=== PATIENT | female | born 1950 | race Caucasian/White ===

== ENCOUNTER → 2018-10-11 | Outpatient (CLI) | payer MEDICARE ==
[~2018-10-11] MED LIST: /CIPR75TA PO; /LANS30GR OR; /ZOLP6ER; /ZOLP6ER OR; ALBU83IN; ALBU83IN IN; AMIT50TA2; AMIT50TA2 OR; ASPI81TA45; ATIV0.5T; ATIV0.5T OR; DETR4CAP; DETR4CAP OR; DILT240C3; DILT240C3 OR; DURAGESIC PATCH; FENT100D25 TD; FLEXERIL; FLEXERIL OR; FOLI1TAB; FOLI1TAB OR; K-TA10TA; LEVO25TA2 OR; LEVO88TA4; LISI10TA4 PO; METH2.5T; METH2.5T OR; PLAV75TA2; PLAV75TA2 OR; POTA10CA2; POTA10CA2 OR; PREV30TA; VENL75TA2; VENL75TA2 OR; VENTAER IN; VICO5TAB; VICO5TAB OR; VIT D 2000 OR; VITAMIN D50000 UNT; ZOCO80TA; ZOCO80TA OR
[2018-10-11 12:51] LABS: BASO # 0.1 10^3/uL (0.0-0.2); BASO % 0.7 % (0.0-1.0); EOS # 0.2 10^3/uL (0.0-0.50); HEMATOCRIT 42.4 % (36.0-47.0); HEMOGLOBIN 13.6 g/dl (12.0-15.5); LYMPH # 2.3 10^3/uL (1.5-4.5); MEAN CORPUSCULAR HEMOGLOBIN 32.9 pg (27.0-33.0); MEAN CORPUSCULAR HGB CONC 32.1 g/dl (32.0-36.5); MEAN CORPUSCULAR VOLUME 102.4 fl (80.0-96.0); MONO # 0.7 10^3/uL (0.0-0.8); MONO % 8.5 % (0.0-5.0); NEUTROPHILS # 4.8 10^3/uL (1.8-7.7); NEUTROPHILS % 59.6 % (36.0-66.0); PLATELET COUNT, AUTOMATED 297 10^3/uL (150-450); RED BLOOD COUNT 4.14 10^6/uL (4.00-5.40); WHITE BLOOD COUNT 8.1 10^3/uL (4.0-10.0)
[2018-10-11 13:07] LABS: ALBUMIN 3.7 GM/DL (3.2-5.2); ALT/SGPT 27 U/L (12-78); BILIRUBIN,TOTAL 0.5 MG/DL (0.2-1.0); BLOOD UREA NITROGEN 16 MG/DL (7-18); CALCIUM LEVEL 9.2 MG/DL (8.8-10.2); CARBON DIOXIDE LEVEL 30 MEQ/L (21-32); CHLORIDE LEVEL 106 MEQ/L (98-107); CREATININE FOR GFR 0.79 MG/DL (0.55-1.30); GLOMERULAR FILTRATION RATE > 60.0 (>39); GLUCOSE, FASTING 100 MG/DL (70-100); SODIUM LEVEL 144 MEQ/L (136-145); TOTAL PROTEIN 6.7 GM/DL (6.4-8.2)
[2018-10-11 13:15] LABS: ERYTHROCYTE SEDIMENTATION RATE 13 mm/hr (0-30)
--- NOTE | 2018-10-11 14:32 | REP ---
REASON: Arthritis. Standing bilateral AP view of the knees shows minimal left knee medial compartmental marginal osteophytosis. The compartments are symmetric and relatively well maintained with the exception of mild medial compartmental narrowing of the left knee. There is no acute fracture, dislocation, or subluxation. IMPRESSION: Left knee chronic changes, as described above. Electronically Signed by Modesto Garcia DO 10/11/2018 04:44 P
--- NOTE | 2018-10-11 14:34 | REP ---
REASON FOR EXAM: Arthritis. COMPARISON EXAM: None. There is rather symmetric-appearing mild to moderate intradigital joint space narrowing, particularly affecting the DIP joints but without periarticular osteopenia, marginal erosions, marginal osteophyte formation, fracture, dislocation, or subluxation. The bones are demineralized. IMPRESSION: Mild chronic changes as described above. Electronically Signed by Modesto Garcia DO 10/11/2018 04:44 P
== END ==
LOC: M LAB 11:47
PROVIDERS: ATTEND Internal Medicine Rheumatology
DX: M17.12 Unilateral primary osteoarthritis, left knee (principal)

== ENCOUNTER → 2019-10-22 | Outpatient (REF) | payer MEDICARE ==
[~2019-10-22] MED LIST changes: +ATIV1TAB10 PO; +CYAN100049 PO; +CYCL-707 PO; +D 10TAB2 PO; +DILT12SRCA PO; +FLON1SPR NARES; +FURO20TA2 PO; +HYDR-3713 PO; +KLOR10TA76 PO; +LEVO50TA5 PO; +LOSA50TA88 PO; +MECL-86 PO; +MONT10TA10 PO; +OMEP-218 PO; +PLAV1TAB2 PO; +QC A10TA PO; +SIMV20TA22 PO; +VENL-37 PO; +XALA0.007 OP
== END ==
LOC: M LAB REF 17:48
PROVIDERS: ATTEND Dermatology
DX: B07.9 Viral wart, unspecified (principal)

== ENCOUNTER → 2019-11-03 | Outpatient (CLI) | payer MEDICARE ==
[2019-11-03 18:15] LABS: BASO # 0.1 10^3/uL (0.0-0.2); BASO % 0.4 % (0.0-1.0); EOS # 0.3 10^3/uL (0.0-0.5); EOS % 2.2 % (0.0-3.0); HEMATOCRIT 42.3 % (36.0-47.0); HEMOGLOBIN 13.3 g/dl (12.0-15.5); LYMPH % 26.6 % (24.0-44.0); MEAN CORPUSCULAR HEMOGLOBIN 33.2 pg (27.0-33.0); MEAN CORPUSCULAR HGB CONC 31.4 g/dl (32.0-36.5); MEAN CORPUSCULAR VOLUME 105.5 fl (80.0-96.0); MONO # 0.8 10^3/uL (0.0-0.8); MONO % 7.1 % (0.0-5.0); NEUTROPHILS # 7.1 10^3/uL (1.5-8.5); NEUTROPHILS % 63.2 % (36.0-66.0); PLATELET COUNT, AUTOMATED 349 10^3/uL (150-450); RED BLOOD COUNT 4.01 10^6/uL (4.00-5.40); WHITE BLOOD COUNT 11.2 10^3/uL (4.0-10.0)
[2019-11-03 18:42] LABS: ALBUMIN 3.7 GM/DL (3.2-5.2); ALT/SGPT 40 U/L (12-78); BILIRUBIN,TOTAL 0.5 MG/DL (0.2-1.0); BLOOD UREA NITROGEN 20 MG/DL (7-18); C REACTIVE PROTEIN QUANTITATIV 1.13 MG/DL (0.00-0.30); CALCIUM LEVEL 8.9 MG/DL (8.8-10.2); CARBON DIOXIDE LEVEL 30 MEQ/L (21-32); CHLORIDE LEVEL 103 MEQ/L (98-107); CREATININE FOR GFR 0.95 MG/DL (0.55-1.30); FERRITIN 70 NG/ML (8-252); GLOMERULAR FILTRATION RATE > 60.0 (>39); GLUCOSE, FASTING 71 MG/DL (70-100); IRON (FE) 109 UG/DL (50-170); PERCENT SATURATION 32.8 % (13.2-45.0); POTASSIUM SERUM 3.8 MEQ/L (3.5-5.1); SODIUM LEVEL 140 MEQ/L (136-145); TOTAL IRON BINDING CAPACITY 332 UG/DL (250-450); TOTAL PROTEIN 6.7 GM/DL (6.4-8.2)
[2019-11-03 19:23] LABS: HIV 1&2 SCREEN CENTAUR NEGATIVE (NEGATIVE)
[2019-11-03 19:31] LABS: ERYTHROCYTE SEDIMENTATION RATE 9 mm/hr (0-30)
[2019-11-04 13:11] LABS: ALBUMIN 4.21 GM/DL (3.29-5.55); ALBUMIN % 62.8 % (55.8-66.1); ALPHA-1-GLOBULIN % 5.1 % (2.9-4.9); ALPHA-1-GLOBULINS 0.34 GM/DL (0.17-0.41); ALPHA-2-GLOBULINS 0.83 GM/DL (0.42-0.99); ALPHA-2-GLOBULINS % 12.4 % (7.1-11.8); BETA-1-GLOBULINS 0.43 GM/DL (0.28-0.60); BETA-1-GLOBULINS % 6.4 % (4.7-7.2); BETA-2-GLOBULINS 0.34 GM/DL (0.19-0.55); GAMMA GLOBULIN % 8.3 % (11.1-18.8); GAMMA GLOBULINS 0.56 GM/DL (0.65-1.58)
[2019-11-05 08:29] LABS: HEPATITIS B SURFACE ANTIBODY NEGATIVE (POSITIVE)
[2019-11-05 08:40] LABS: HEPATITIS B SURFACE ANTIGEN NEGATIVE (NEGATIVE)
[2019-11-05 09:08] LABS: HEPATITIS C VIRUS ABY INDEX 0.1 INDEX (<0.8)
[2019-11-06 13:07] LABS: BILE ACIDS FRACTIONATED 1.8 umol/L (0.0-10.0); HEPATITIS B CORE ANTIBODY IGG Negative (Negative)
== END ==
LOC: M LAB 16:27
PROVIDERS: ATTEND Dermatology
DX: L29.9 Pruritus, unspecified (principal)